=== PATIENT | female | born 1950 | race Caucasian/White ===

== ENCOUNTER 2020-05-20 12:33 | Outpatient (REF) | payer MEDICARE, OTHER, SELFPAY ==
--- NOTE | 2020-05-20 12:42 | XR_ITS ---
EXAMINATION: XR CHEST CLINICAL INFORMATION: Dyspnea, unspecified COMPARISON: None TECHNIQUE: 2 views of the chest were obtained. FINDINGS: The lungs are clear. The vascularity is normal. There is no airspace consolidation or groundglass opacity. No effusion. The costophrenic sulci are clear. The heart is normal in size. The hilar and mediastinal contours are normal. No visible acute bony abnormality. XR/XR chest 2V IMPRESSION: Unremarkable examination.
== END 2020-05-20 12:34 | disposition home or self-care (01) ==
LOC: HO.XRAY 12:33
PROVIDERS: PCP Internal Medicine; Visit Provider Hospitalist
DX: R06.00 Dyspnea, unspecified (principal)
CPT/HCPCS: 71046

== ENCOUNTER → 2020-06-07 13:38 | Outpatient (BNVA) | payer MEDICARE, OTHER, SELFPAY | PROVIDERS: PCP Internal Medicine; Visit Provider Hospitalist | DX: J45.40 Moderate persistent asthma, uncomplicated (principal); R05 Cough | CPT/HCPCS: 99212 ==

== ENCOUNTER → 2021-03-16 10:20 | Outpatient (BNVA) | payer MEDICARE, OTHER, SELFPAY | PROVIDERS: PCP Internal Medicine; Visit Provider Hospitalist | DX: J45.40 Moderate persistent asthma, uncomplicated (principal); J31.0 Chronic rhinitis; R05 Cough | CPT/HCPCS: 99212 ==

== ENCOUNTER → 2022-08-28 10:35 | Outpatient (BNVA) | payer MEDICARE, OTHER, SELFPAY | PROVIDERS: PCP Internal Medicine; Visit Provider Hospitalist | DX: J45.40 Moderate persistent asthma, uncomplicated (principal); R05.9 Cough, unspecified; J31.0 Chronic rhinitis; Z79.899 Other long term (current) drug therapy | CPT/HCPCS: 99212 ==

== ENCOUNTER 2023-07-26 09:53 | Outpatient (REF) | payer MEDICARE, OTHER, SELFPAY ==
--- NOTE | 2023-07-26 11:00 | PFT_ITS ---
Indication: Asthma Scale Mechanic note: The patient was not able to perform the maneuvers to complete the lung volumes. Therefore no data was collected. Spirometry [FEV1 to FVC 69% pre bronchodilators and 71% post bronchodilators; FEV1 2.4 L which is 103% predicted; FVC 3.37 L which is 100% predicted. Maximum voluntary ventilation 111% predicted] Lung Volumes [Could not be measured] Diffusion Capacity [DLCO 94% predicted] Comparisons [None] Interpretation [There is a partially reversible obstructive ventilatory defect consistent with her history of asthma and obstructive airways disease. No significant response to bronchodilators noted. No maximum voluntary ventilation. Lung volumes could not be measured. The diffusing capacity is within normal limits. Clinical correlation warranted if] MTDD
== END 2023-07-26 09:54 | disposition home or self-care (01) ==
LOC: HO.RESP 09:53
PROVIDERS: PCP Internal Medicine; Visit Provider Hospitalist
DX: Z13.89 Encounter for screening for other disorder (principal)

== ENCOUNTER → 2023-07-26 11:00 | Outpatient (BNV) | payer MEDICARE, OTHER, SELFPAY | PROVIDERS: PCP Internal Medicine; Visit Provider Hospitalist | DX: J45.40 Moderate persistent asthma, uncomplicated (principal) | CPT/HCPCS: 94060; 94729 ==

== ENCOUNTER 2023-08-21 14:11 | Outpatient (AMB) | payer MEDICARE, SELFPAY ==
[2023-08-21 14:23] VITALS: PULSE 77; O2SAT 98; BMI 25.9
--- NOTE | 2023-08-21 14:23 | A.OFFVIS_ITS ---
Intake Vital Signs 08/21/23 14:23 Height 5 ft 6.5 in Weight 163 lb BMI 25.9 Pulse 77 Pulse Source Pulse Oximeter Pulse Oximetry (%) 98 Oxygen Delivery Method Room Air Intake Visit Reasons: Dyspnea Eligibility Technician Required: No Allergies tetracycline Allergy (Intermediate, Verified 08/21/23 14:24) Hives HPI HPI Comments History of Present Illness Details The patient is a 73-year-old woman with a known history of reactive airway disease with history of all the allergies chronic rhinitis and chronic cough. Apparently back in May she has had worsening respiratory symptoms. She was treated for sinusitis with antibiotics. She has been using her nebulizer more often. Up to 3 times a week with good improvement of her cough symptoms. She also has being doing much better on the benzonatate switch out help her cough. She does complaint of a postnasal drip which is moderate severity s ometimes thin. He will does worsen with eating. Also is worse at nighttime. Also, the patient does have some evidence of heartburn. She does have a diet which is concerning for significant reflux disease with multiple coffees a day, and seltzer water. 08/28/2022 the patient is here for a pulmonary follow-up visit. The patient overall is doing very well. She continues with the Symbicort twice a day and also continues to use her Tessalon Perles on a daily basis. The Tessalon Perles definitely give her a relief from her cough and she is able to function better. In regards of the Symbicort she continues to take it 2 puffs twice a day. She is wondering if she should be on a lower dose. She has not had any recent exacerbations or need for prednisone. I do believe that she can start cutting down slowly as specially at the nighttime dose. She continues to exercise regularly. The patient has had not had any recent breathing studies or pulmonary or chest x-ray. Will plan to have her follow-up in a year's time with PFTs. 08/21/2023 the patient is here for a pulmonary follow-up visit. The patient overall has been doing well. She continues with Symbicort twice a day. She does rinse her mouth denies any adverse effects. She has not had to use her rescue inhaler. We did look at her pulmonary function studies that she had recently. Appears to have a partially reversible obstruction consistent with her asthma. Otherwise her lung volumes could not be achieved in her gas exchange is within normal limits. No recent imaging at this time her last chest x-ray from 2019 appeared to be okay. The patient clinically is doing well so therefore will hold off on any imaging studies at this time. She will continue with her medication although she will cut down the Symbicort some. She will continue with the current respiratory therapy and follow-up in a year's time. If any other issues arise she will call for an earlier assessment. [facility] Medical History (Updated 08/21/23 @ 14:45 by Demetri Moreno MD) Chronic rhinitis Cough Asthma Dyspnea Social History (Updated 03/16/21 @ 10:34 by LAYLA Penaloza) Patient Tobacco Use Status: Never used Tobacco Review of Systems Const Denies night sweats ENT Denies change in voice, Denies lip swelling, Denies mouth pain, Reports nasal congestion, Reports nasal discharge and Denies tongue swelling Card Denies chest pain Resp Reports cough GI Denies abdominal pain Musc Denies no additional complaints Neuro Denies Neuro-related abnormal movements Psych Denies no additional complaints Tristen/Lymph Denies easy bleeding and Denies lymphadenopathy Aller/Immun Denies lip swelling and Denies tongue swelling Physical Exam Vital Signs: Last Vital Signs Pulse 77 08/21/23 14:23 Pulse Ox 98 08/21/23 14:23 Oxygen Delivery Method Room Air 08/21/23 14:23 BMI result Body Mass Index 25.9 Const General: alert Neck Neck: Yes normal visual inspection, Yes full ROM and Yes no lymphadenopathy Chest Chest palpation & inspection: normal inspection of the chest Resp Auscultation: diminished lung sounds Cardio Rate: regular rate Rhythm: regular rhythm Heart sounds: S1 normal heart sound present and S2 normal heart sound present GI Palpation (GI): Soft to palpation and nontender Auscultation: normal bowel sounds Skin General skin exam: no rashes or lesions noted Extrem General: Yes no clubbing, cyanosis or edema Assessment & Plan Assessment & Plan (1) Asthma: Code(s): J45.909 - Unspecified asthma, uncomplicated Qualifiers: Asthma complication type: uncomplicated Asthma persistence: persistent Asthma severity: moderate Qualified Code(s): J45.40 - Moderate persistent asthma, uncomplicated Plan: Continue respiratory therapy of Symbicort twice a day short-acting beta agonist as needed provided new spacer today for her Symbicort (2) Cough: Code(s): R05 - Cough Qualifiers: Cough type: chronic Qualified Code(s): R05.3 - Chronic cough Plan: Tessalon Perles as needed Reflux diet Sleep elevated (3) Chronic rhinitis: Code(s): J31.0 - Chronic rhinitis Plan: Nasal therapies Allergy therapy Plan continue symbicort, will decrease evening dose KIANNA as needed Ipratropiun nasal spray Tessalon pearls as needed F/U 1yr Medications: Refilled benzonatate 200 mg PO TID 90 days PRN 240 caps 3RF cough Coding Level of Care Code Est Pt Level 4 (94164) Diagnoses Moderate persistent asthma without complication J45.40 Asthma complication type: uncomplicated Asthma persistence: persistent Asthma severity: moderate Chronic cough R05.3 Cough type: chronic Chronic rhinitis J31.0 Time Spent (min) 17
== END 2023-08-21 14:51 | disposition home or self-care (01) ==
PROVIDERS: PCP Internal Medicine; Visit Provider Hospitalist
DX: J45.40 Moderate persistent asthma, uncomplicated (principal); R05.3 Chronic cough; J31.0 Chronic rhinitis
CPT/HCPCS: 99214

== ENCOUNTER → 2023-08-21 14:11 | Outpatient (BNVA) | payer MEDICARE, SELFPAY | PROVIDERS: PCP Internal Medicine; Visit Provider Hospitalist | DX: J45.40 Moderate persistent asthma, uncomplicated (principal); R05.3 Chronic cough; J31.0 Chronic rhinitis | CPT/HCPCS: 99212 ==